=== PATIENT | male | born 1945 | race Caucasian/White ===

== ENCOUNTER 2019-02-16 18:11 | Emergency (ER) | payer MEDICARE ==
[~2019-02-16] VITALS: Ht 177.8 cm; Wt 115.7 kg
[2019-02-16 19:26] LABS: BILIRUBIN,URINE NEGATIVE (NEG); CLARITY,URINE CLOUDY; COLOR,URINE YELLOW; NITRITE,URINE NEGATIVE (NEG); PH,URINE 5.5; PROTEIN,URINE NEGATIVE (NEG-TRACE); UROBILINOGEN,URINE 0.2 mg/dL (0.2 mg/dL)
[2019-02-16 19:30] VITALS: BP 142/67
[2019-02-16 19:31] LABS: BACTERIA,URINE 0 /HPF (0-FEW); WBC,URINE OCC /HPF (0-4)
[2019-02-16] MEDS ORDERED: LEVO500T59 PO (19:34)
--- NOTE | 2019-02-16 19:34 | PHYS DOC ---
Past Medical History Past Medical History: Prostatitis Past Surgical History: Hip Replacement Alcohol Use: Heavy Additional Information: 3-4 DRINKS A DAY; VODKA AND BEER Drug Use: None Adult General Chief Complaint Chief Complaint: URINARY RETENTION HPI HPI 73-year-old male with a history of BPH presents with a 12-16 hour history of the inability to urinate. He states he urinated very well in the middle of the night last night and now this evening he's been unable to get anything out. He states the pain is intensified throughout the day. He denies any fever chills or sweats. He denies any gross hematuria. As happened in the past. He states he's been evaluated at [facility] for prostate cancer and this came back negative. He is scheduled to go back to [facility] on Wednesday.[] Review of Systems Review of Systems Constitutional: Denies fever or chills [] Eyes: Denies change in visual acuity, redness, or eye pain [] HENT: Denies nasal congestion or sore throat [] Respiratory: Denies cough or shortness of breath [] Cardiovascular: No additional information not addressed in HPI [] GI: Denies abdominal pain, nausea, vomiting, bloody stools or diarrhea [] : Urinary retention[] Musculoskeletal: Denies back pain or joint pain [] Integument: Denies rash or skin lesions [] Neurologic: Denies headache, focal weakness or sensory changes [] Endocrine: Denies polyuria or polydipsia [] All other systems were reviewed and found to be within normal limits, except as documented in this note. Allergies Allergies Allergies Coded Allergies Type Severity Reaction Last Updated Verified No Known Drug Allergies 02/16/19 No Physical Exam Physical Exam Constitutional: Well developed, well nourished, moderate distress, non-toxic appearance. [] HENT: Normocephalic, atraumatic, bilateral external ears normal, oropharynx moist, no oral exudates, nose normal. [] Eyes: PERRLA, EOMI, conjunctiva normal, no discharge. [] Neck: Normal range of motion, no tenderness, supple, no stridor. [] Cardiovascular:Heart rate regular rhythm, no murmur [] Lungs & Thorax: Bilateral breath sounds clear to auscultation [] Abdomen: Suprapubic tenderness and fullness, bladder scanner shows greater than 1000 mL of urine. [] Skin: Warm, dry, no erythema, no rash. [] Back: No tenderness, no CVA tenderness. [] Extremities: No tenderness, no cyanosis, no clubbing, ROM intact, no edema. [] Neurologic: Alert and oriented X 3, normal motor function, normal sensory function, no focal deficits noted. [] Psychologic: Affect normal, judgement normal, mood normal. [] Current Patient Data Vital Signs Vital Signs Date Time Temp Pulse Resp B/P (MAP) Pulse Ox O2 Delivery O2 Flow Rate FiO2 02/16/19 18:42 98.3 88 16 163/78 (106) 97 Room Air 98.3 EKG EKG [] Radiology/Procedures Radiology/Procedures [] Course & Med Decision Making Course & Med Decision Making Pertinent Labs and Imaging studies reviewed. (See chart for details) [ED course: Evaluation reveals a 73-year-old male with acute urinary retention. A Mensah catheter was placed by the nurse and greater than 1000 mL of clear yellow urine returned. Patient had immediate relief. We fitted the patient with a leg bag. I've instructed the patient that he needs to leave the catheter in for at least 3 days. He will follow with his urologist when he gets back to [place].] Dragon Disclaimer Dragon Disclaimer This electronic medical record was generated, in whole or in part, using a voice recognition dictation system. Departure Departure Impression: Primary Impression: Urinary retention due to benign prostatic hyperplasia Disposition: 01 HOME, SELF-CARE Condition: IMPROVED Referrals: UNKNOWN PCP NAME (PCP) Patient Instructions: Mensah Catheter Care, Adult, Urinary Retention, Acute, Male Additional Instructions: Return to the emergency department with any new or concerning symptoms Scripts Levofloxacin (LEVAQUIN) 500 Mg Tablet 1 TAB PO DAILY for urinary tract infection, #10 TAB Prov: MOISE JACKSON DO 02/16/19 MOISE JACKSON DO Feb 16, 2019 19:34
== END 2019-02-16 20:02 | disposition home or self-care (01) ==
LOC: ER 18:11
DX: N40.1 Benign prostatic hyperplasia with lower urinary tract symptoms (principal); R33.8 Other retention of urine; Z96.649 Presence of unspecified artificial hip joint; F10.20 Alcohol dependence, uncomplicated; Y90.9 Presence of alcohol in blood, level not specified
CPT/HCPCS: 51702; 81001; 99285-25